=== PATIENT | female | born 1995 | race Two or more races ===

== ENCOUNTER 2023-06-03 22:02 | Emergency (ER) | payer OTHER ==
[~2023-06-03] VITALS: Ht 160 cm; Wt 58.1 kg
[2023-06-03] MEDS ORDERED: PRENA1 TRUE CO1 EACH (22:14)
[2023-06-04] MEDS ORDERED: MONISTAT 315 GM VAG (00:58)
[2023-06-04] MEDS ORDERED: CEPHALEXIN500 MG PO (00:58)
== END 2023-06-04 01:02 ==
LOC: ER 22:02
DX: O26.892 Other specified pregnancy related conditions, second trimester (principal); Z3A.19 19 weeks gestation of pregnancy; N75.0 Cyst of Bartholin's gland

== ENCOUNTER 2023-07-08 02:19 | Outpatient (CLI) | payer OTHER ==
[~2023-07-08 02:19] MED LIST: CEPHALEXIN500 MG PO; MONISTAT 315 GM VAG; PRENA1 TRUE CO1 EACH
[2023-07-08 03:53] LABS: HEMATOCRIT 32.7 % (36.0-45.00); HEMOGLOBIN 10.7 g/dL (12.0-15.00); MEAN CELL VOLUME 92.1 fL (80.00-100.00); MEAN CORPUSCULAR HEMOGLOBIN 30.1 pg (27.00-32.0); MEAN CORPUSCULAR HGB CONC 32.7 g/dl (32.0-36.0); PLATELET COUNT 246 K/uL (150-450); RED BLOOD COUNT 3.55 M/uL (4.00-6.00); RED CELL DISTRIBUTION WIDTH 13.2 % (11.5-14.5)
[2023-07-08] MEDS ORDERED: CEFUROXIME500 MG PO (08:02)
== END 2023-07-08 09:54 | disposition home or self-care (01) ==
LOC: OBS/DEL 02:19
PROVIDERS: ATTEND Specialist
DX: O26.892 Other specified pregnancy related conditions, second trimester (principal); N75.0 Cyst of Bartholin's gland; Z3A.24 24 weeks gestation of pregnancy

== ENCOUNTER 2023-09-29 00:19 | Outpatient (CLI) | payer OTHER ==
[~2023-09-29 00:19] MED LIST changes: +CEFUROXIME500 MG PO
[2023-09-29 00:35] LABS: URINE APPEARANCE Clear; URINE BACTERIA 763.5 uL (0.0-1933); URINE BILIRRUBIN Negative (NEGATIVE); URINE BLOOD Negative; URINE COLOR Yellow; URINE EPITHELIAL CELLS 31.9 uL (0.0-38.8); URINE GLUCOSE Negative (NEGATIVE); URINE LEUKOCYTE Trace; URINE NITRATE Negative; URINE PROTEIN Negative (NEGATIVE); URINE UROBILINOGEN 0.2 E.U./dl; URINE WBC 18.8 uL (0.0-23.2)
[2023-09-29 00:38] LABS: HEMATOCRIT 34.9 % (36.0-45.00); HEMOGLOBIN 11.8 g/dL (12.0-15.00); MEAN CELL VOLUME 88.9 fL (80.00-100.00); MEAN CORPUSCULAR HGB CONC 33.8 g/dl (32.0-36.0); PLATELET COUNT 225 K/uL (150-450); RED BLOOD COUNT 3.92 M/uL (4.00-6.00); RED CELL DISTRIBUTION WIDTH 12.9 % (11.5-14.5); URINE RBC 0.1 uL (0.0-20.8)
[2023-09-29 00:54] LABS: ALBUMIN 2.7 gm/dL (3.4-5.0); BILIRUBIN TOTAL 0.24 mg/dL (0.3-1.2); CALCIUM 8.9 mg/dL (8.5-10.1); CREATININE SERUM 0.75 mg/dL (0.55-1.02); GFR 93.41; GLOBULINA 3.3 G/DL (2.4-3.5); POTASSIUM 3.81 mEq/L (3.5-5.1)
== END 2023-09-29 10:06 | disposition home or self-care (01) ==
LOC: OBS/DEL 00:19
PROVIDERS: ATTEND Specialist
DX: O26.893 Other specified pregnancy related conditions, third trimester (principal); Z3A.36 36 weeks gestation of pregnancy; K52.89 Other specified noninfective gastroenteritis and colitis

== ENCOUNTER 2023-10-07 10:41 | Inpatient (IN) | payer OTHER ==
[~2023-10-07] VITALS: Ht 160 cm; Wt 3.2 kg
[2023-10-07 11:22] LABS: HEMATOCRIT 36.4 % (36.0-45.00); HEMOGLOBIN 12.6 g/dL (12.0-15.00); MEAN CELL VOLUME 90.2 fL (80.00-100.00); MEAN CORPUSCULAR HEMOGLOBIN 31.3 pg (27.00-32.0); MEAN CORPUSCULAR HGB CONC 34.7 g/dl (32.0-36.0); PLATELET COUNT 238 K/uL (150-450); RED BLOOD COUNT 4.03 M/uL (4.00-6.00); RED CELL DISTRIBUTION WIDTH 13.1 % (11.5-14.5)
[2023-10-07 11:23] LABS: URINE APPEARANCE Clear; URINE BILIRRUBIN Negative (NEGATIVE); URINE BLOOD Negative; URINE COLOR Yellow; URINE LEUKOCYTE Negative; URINE NITRATE Negative; URINE PROTEIN Negative (NEGATIVE); URINE UROBILINOGEN 0.2 E.U./dl
[2023-10-07 11:27] LABS: URINE BACTERIA 214.1 uL (0.0-1933); URINE EPITHELIAL CELLS 6.1 uL (0.0-38.8); URINE WBC 4.1 uL (0.0-23.2)
[2023-10-07 11:44] LABS: INR < 0.93; PARTIAL THROMBOPLASTIN TIME 29.7 SECONDS (22.0-34.0); PROTHROMBIN TIME 9.7 SECONDS (9.0-11.5)
[2023-10-07 11:48] LABS: URINE GLUCOSE 100 MG/DL (NEGATIVE)
[2023-10-07 11:50] LABS: ALBUMIN 2.7 gm/dL (3.4-5.0); BILIRUBIN TOTAL 0.38 mg/dL (0.3-1.2); CALCIUM 8.7 mg/dL (8.5-10.1); CREATININE SERUM 0.57 mg/dL (0.55-1.02); GFR 128.21; GLOBULINA 3.8 G/DL (2.4-3.5); POTASSIUM 3.72 mEq/L (3.5-5.1); TOTAL PROTEIN 6.5 gm/dL (6.4-8.2)
[2023-10-18 02:46] LABS: HEMATOCRIT 34.2 % (36.0-45.00); HEMOGLOBIN 11.4 g/dL (12.0-15.00); MEAN CORPUSCULAR HGB CONC 33.3 g/dl (32.0-36.0); PLATELET COUNT 210 K/uL (150-450); RED BLOOD COUNT 3.79 M/uL (4.00-6.00); RED CELL DISTRIBUTION WIDTH 13.2 % (11.5-14.5)
[2023-10-20] MEDS ORDERED: IBUPROFEN800 MG PO (07:27)
== END 2023-10-20 11:34 | disposition home or self-care (01) | DRG 788 ==
LOC: O/R 10-17 06:19 → OB/GYN 10-17 06:19
PROVIDERS: ADMIT Specialist; ATTEND Specialist
PROC: 4A1HXCZ Monitoring of Products of Conception, Cardiac Rate, External Approach (ICD-10-PCS; 2023-10-17)
PROC: 10D00Z1 Extraction of Products of Conception, Low, Open Approach (ICD-10-PCS; principal; 2023-10-17 11:45)
DX: O32.1XX0 Maternal care for breech presentation, not applicable or unspecified (principal); Z3A.39 39 weeks gestation of pregnancy; Z37.0 Single live birth; Z20.822 Contact with and (suspected) exposure to COVID-19

== ENCOUNTER 2025-04-08 07:00 | Inpatient (IN) | payer OTHER ==
[~2025-04-08] VITALS: Ht 160 cm; Wt 73.0 kg
[~2025-04-08 07:00] MED LIST changes: +IBUPROFEN800 MG PO
[2025-04-14 09:58] LABS: BASO % 0.3 % (0.1-1.2); EOS # 0.07 (0.04-0.54); EOS % 0.7 % (0.7-7.0); LYMPH # 1.60 (1.18-3.74); LYMPH % 15.8 % (19.3-53.1); MEAN PLATELET VOLUME 10.90 fl (9.4-12.4); MONO # 0.67 (0.24-0.82); MONO % 6.6 % (4.7-12.5); NEUT # 7.74 (1.56-6.13); NEUT % 76.2 % (34.0-71.1); RED CELL DISTRIBUTION WIDTH 12.2 % (11.6-14.4)
[2025-04-14 10:16] LABS: INR < 0.93
[2025-04-14 10:47] LABS: URINE APPEARANCE Clear; URINE BILIRRUBIN Negative (NEGATIVE); URINE BLOOD Negative; URINE COLOR Yellow; URINE GLUCOSE Negative (NEGATIVE); URINE KETONE Negative (NEGATIVE); URINE LEUKOCYTE Large; URINE NITRATE Negative; URINE PROTEIN Negative (NEGATIVE); URINE UROBILINOGEN 1.0 E.U./dl
[2025-04-14 10:48] LABS: ALT/SGPT 35.0 U/L (12-78); AST/SGOT 26.0 U/L (15-37); BILIRUBIN TOTAL 0.47 mg/dL (0.3-1.2); BUN CREA RATIO 16.0 (7.0-25.0); CREATININE SERUM 0.62 mg/dL (0.55-1.02); GFR 115.46; GLOBULINA 3.6 G/DL (2.4-3.5); GLUCOSE FASTING 72.0 mg/dL (65-100); OSMOLALITY SERUM 277.0 MOSM/KG (275-295)
[2025-04-14 10:50] LABS: URINE BACTERIA 3648.0 uL (0.0-1933); URINE EPITHELIAL CELLS 92.9 uL (0.0-38.8); URINE WBC 17.9 uL (0.0-23.2)
[2025-04-14 10:57] LABS: URINE CAST 0.14 uL (0.0-1.40); URINE RBC 1.1 uL (0.0-20.8)
[2025-04-15 05:49] VITALS: BP 110/63
[2025-04-15] MEDS ORDERED: CEFAZOLIN SODIUM 1,000 MG VIAL ONE (07:01)
[2025-04-15] MEDS ORDERED: OXYTOCIN 20 UNITS/1000ML RL PIGGYBAG IV ONE (07:45)
[2025-04-15] MEDS ORDERED: ERYTHROMYCIN BASE OPHT 1GM EACH TUBE OP ONE (07:45)
[2025-04-15] MEDS ORDERED: MORPHINE SULFATE 4 MG/ML CARTRIDGE IV PRN (09:00)
[2025-04-15] MEDS ORDERED: RINGERS SOLUTION,LACTATED 1,000 ML IV SCH (09:00)
[2025-04-15] MEDS ORDERED: MORPHINE SULFATE 4 MG/ML VIAL IV ONE (09:18)
[2025-04-15 13:35] VITALS: BP 96/66
[2025-04-15] MEDS ORDERED: CEFAZOLIN SODIUM 1,000 MG VIAL IV SCH (14:00)
[2025-04-15 16:19] VITALS: BP 96/66
[2025-04-16 00:02] VITALS: BP 114/70
[2025-04-16 01:32] LABS: BASO % 0.4 % (0.1-1.2); EOS # 0.02 (0.04-0.54); EOS % 0.1 % (0.7-7.0); LYMPH # 1.60 (1.18-3.74); LYMPH % 9.4 % (19.3-53.1); MEAN PLATELET VOLUME 10.90 fl (9.4-12.4); MONO # 1.05 (0.24-0.82); MONO % 6.2 % (4.7-12.5); NEUT # 14.14 (1.56-6.13); NEUT % 83.3 % (34.0-71.1); RED CELL DISTRIBUTION WIDTH 12.2 % (11.6-14.4)
[2025-04-16 05:00] VITALS: BP 112/72
[2025-04-16 08:00] VITALS: BP 112/70
[2025-04-16] MEDS ORDERED: ACETAMINOPHEN 325 MG TABLET PO PRN (09:15)
[2025-04-16] MEDS ORDERED: OxyCODONE HCL 5 MG TABLET (ROXICODONE) PO SCH (13:00)
[2025-04-16 23:55] VITALS: BP 118/74
[2025-04-17 08:00] VITALS: BP 96/56
== END 2025-04-17 14:45 | disposition home or self-care (01) | DRG 785 ==
LOC: SURH 04-15 07:00 → O/R 04-15 08:12 → OB/GYN 04-15 12:49
PROVIDERS: ADMIT Specialist; ATTEND Specialist
PROC: 0UB70ZZ Excision of Bilateral Fallopian Tubes, Open Approach (ICD-10-PCS; 2025-04-15)
PROC: 4A1HXCZ Monitoring of Products of Conception, Cardiac Rate, External Approach (ICD-10-PCS; 2025-04-15)
PROC: 10D00Z1 Extraction of Products of Conception, Low, Open Approach (ICD-10-PCS; principal; 2025-04-15 07:00)
DX: O34.211 Maternal care for low transverse scar from previous cesarean delivery (principal); Z30.2 Encounter for sterilization; Z3A.38 38 weeks gestation of pregnancy; Z37.0 Single live birth